=== PATIENT | male | born 1940 | race Caucasian/White ===

== ENCOUNTER 2016-07-10 11:02 | Emergency (ER) | payer OTHER ==
[~2016-07-10] VITALS: Ht 175.3 cm; Wt 102.9 kg
[~2016-07-10 11:02] MED LIST: ALIGN4 MG PO; ALTACE10 MG PO; ALTACE5 MG PO; AMITIZA24 MICROGR PO; AMLODIPINE BESY10 MG PO; AMLODIPINE BESYL5 MG PO; ASPERDRINK81 MG PO; ASPIR 8181 M1 PO; ASPIRIN81 M1 PO; BENEFIBER236 GM PO; BENEFIBER98 GM PO; BENEMID500 MG PO; BETAMETHASONE V15 GM TP; BUMETANIDE1 MG PO; BUMEX0.5 MG PO; BUMEX1 MG PO; CALCIPOTRIENE60 G1 TP; CALCIPOTRIENE60 ML TP; CHILDREN'S ASPI81 M1 PO; CICLOPIROX 0.77% TP; CICLOPIROX OLAMINE TP; CICLOPIROX30 GM TP; CICLOPIROX60 ML TP; CLOBETASOL 0.05%; CLOBETASOL PROP50 ML TP; CLOBETASOL PROP60 GM TP; COLACE100 MG PO; COLBENEMID1 TABLET; CORMAX50 M1 TP; COUMADIN PO; COUMADIN1 MG PO; COUMADIN5 MG PO; COUMADIN6 MG PO; COUMADIN7.5 MG PO; DAILY MULTIPLE1 EAC2 PO; DAILY VITAMIN1 EAC4 PO; DAILY VITE1 EAC1 PO; DESOWEN60 GM; DESYREL12.5 MG PO; DICYCLOMINE HCL10 MG PO; DIGESTIVE PROB1 EACH PO; DOCUSATE SODIU100 MG PO; FLORANEX CHE1 TABLET PO; GLUCOSAMINE &1 EACH PO; GLUCOSAMINE CH1 EAC6 PO; IMDUR60 MG PO; IPRATROPIU0.2 MG/1 M IH; JANTOVEN4 MG PO; KEFLEX500 MG PO; KETOCONAZOLE120 ML TP; LASIX40 MG PO; LEVAQUIN500 MG PO; LO-DOSE ASPIRIN81 M1 PO; LOW DOSE ASPIRI81 M1 PO; MILK OF MAGN PO; MILK OF MAGNESI10 ML PO; MIRALAX17 GM PO; MIRALAX255 GM PO; MUCINEX600 MG PO; MULTI VITAMIN; MULTIVITAMIN1 EAC2 PO; MYLICON,MYLANTA80 MG PO; NAPROSYN500 MG PO; NIFEDIPINE ER30 MG PO; NITROSTAT0.4 MG SL; NIZORAL A-D120 ML TP; NIZORAL SHAMPO120 ML TP; NORVASC5 MG PO; OMEPRAZOLE40 M1 PO; ONE DAILY COMP1 EACH PO; OSTEO BI-FLEX1 EAC1 PO; OSTEO BI-FLEX1 EAC2 PO; OSTEO BIFLEX; OSTERA TABLET1 EACH PO; PERCOCET 5/31 TABLET PO; PLAVIX75 MG PO; PREDNISONE20 MG PO; PRILOSEC40 MG PO; PROBENECID; PROBENECID500 MG PO; PROBIOTIC; PROBIOTIC1 EAC1 PO; PROBIOTIC1 EACH PO; RAMIPRIL10 MG PO; RANITIDINE HCL150 M1; RANITIDINE HCL150 M1 PO; RANITIDINE HCL150 MG PO; ST. JOSEPH ASPI81 MG PO; STOOL SOFTENER100 MG PO; TEMOVATE 0.05%30 GM TP; TYLENOL EXTRA500 MG PO; TYLENOL REGULA325 MG PO; VALISONE 0.1% TP; VITAMIN C1000 MG PO; WAFARIN PO; WARFARIN SODIUM1 MG PO; WARFARIN SODIUM5 MG PO; WARFARIN SODIUM6 MG PO; XARELTO15 MG; ZANTAC150 MG PO; ZETIA10 MG; ZETIA10 MG PO; ZYRTEC10 M3 PO; [UNRECOGNIZED DRUG - OTHER]; [UNRECOGNIZED DRUG - OTHER]; [UNRECOGNIZED DRUG - OTHER] PO
[2016-07-10 12:25] LABS: HEMATOCRIT 37.8 % (38.0-50.0); MCH 31.2 PG (29.0-34.0); MCHC 33.3 G/DL (30.0-36.0); MCV 93.6 FL (86-99); MEAN PLAT.VOLUME 9.4 uM^3 (9.0-12.4); PLATELET COUNT 193 K/uL (156-360); RBC DIS.WIDTH-CV 15.6 % (11.8-14.6); RBC DIS.WIDTH-SD 50.7 % (39-53); RED BLOOD COUNT 4.04 M/uL (4.00-5.50); WHITE BLOOD COUNT 6.6 K/uL (4.1-10.2)
[2016-07-10 12:34] LABS: CHLORIDE 99 mEq/L (99-109); POTASSIUM 4.7 mEq/L (3.7-5.4); SODIUM 131 mEq/L (136-147)
[2016-07-10 12:36] LABS: GLUCOSE 105 mg/dL (70-99)
[2016-07-10 12:38] LABS: ANION GAP 11 MEQ/L (2-14)
[2016-07-10 12:40] LABS: GFR ESTIMATE (CALCULATED) 40 mL/min/
[2016-07-10 12:41] LABS: UREA NITROGEN (BUN) 25 mg/dL (9-23)
[2016-07-10] MEDS ORDERED: CARTIA XT180 MG PO (13:13)
[2016-07-10 13:54] LABS: INFLUENZA A VIRAL ANTIGEN POSITIVE; INFLUENZA B VIRAL ANTIGEN NEGATIVE
[2016-07-10 14:57] VITALS: BP 109/65
== END 2016-07-10 14:58 | disposition home or self-care (01) ==
LOC: EME 11:02
PROVIDERS: Emergency Medicine
DX: J11.1 Influenza due to unidentified influenza virus with other respiratory manifestations (principal); E78.5 Hyperlipidemia, unspecified; I10 Essential (primary) hypertension; I25.2 Old myocardial infarction; M81.0 Age-related osteoporosis without current pathological fracture; I25.10 Atherosclerotic heart disease of native coronary artery without angina pectoris; G89.29 Other chronic pain; M79.7 Fibromyalgia; Z85.46 Personal history of malignant neoplasm of prostate; Z98.61 Coronary angioplasty status; Z95.0 Presence of cardiac pacemaker; Z98.1 Arthrodesis status; Z87.891 Personal history of nicotine dependence; Z79.01 Long term (current) use of anticoagulants; Z79.82 Long term (current) use of aspirin
CPT/HCPCS: 71020; 80048; 85027; 87040; 87502; 99281; 99285

== ENCOUNTER 2017-01-28 17:26 | Emergency (ER) | payer OTHER ==
[~2017-01-28] VITALS: Ht 175.3 cm; Wt 99.7 kg
[~2017-01-28 17:26] MED LIST changes: +CARTIA XT180 MG PO
[2017-01-28 18:17] LABS: HEMATOCRIT 38.3 % (38.0-50.0); MCH 30.1 PG (29.0-34.0); MCHC 33.2 G/DL (30.0-36.0); MCV 90.8 FL (86-99); MEAN PLAT.VOLUME 9.2 uM^3 (9.0-12.4); PLATELET COUNT 234 K/uL (156-360); RBC DIS.WIDTH-CV 14.5 % (11.8-14.6); RBC DIS.WIDTH-SD 48.5 % (39-53); RED BLOOD COUNT 4.22 M/uL (4.00-5.50); WHITE BLOOD COUNT 6.6 K/uL (4.1-10.2)
[2017-01-28 18:30] LABS: CHLORIDE 99 mEq/L (99-109); POTASSIUM 4.6 mEq/L (3.7-5.4); SODIUM 133 mEq/L (136-147)
[2017-01-28 18:32] LABS: GLUCOSE 115 mg/dL (70-99)
[2017-01-28 18:33] LABS: ANION GAP 8 MEQ/L (2-14)
[2017-01-28 18:36] LABS: GFR ESTIMATE (CALCULATED) 45 mL/min/
[2017-01-28 18:37] LABS: UREA NITROGEN (BUN) 21 mg/dL (9-23)
[2017-01-28 18:40] LABS: TROP-I INTERPRETATION NEGATIVE; TROPONIN-I < 0.01 ng/mL (0.0-0.30)
[2017-01-28 22:33] LABS: TROP-I INTERPRETATION NEGATIVE; TROPONIN-I < 0.01 ng/mL (0.0-0.30)
[2017-01-28 23:04] VITALS: BP 138/88
== END 2017-01-28 23:06 | disposition home or self-care (01) ==
LOC: EME 17:26
PROVIDERS: Emergency Medicine
DX: R07.89 Other chest pain (principal); I25.2 Old myocardial infarction; E78.5 Hyperlipidemia, unspecified; I10 Essential (primary) hypertension; Z95.0 Presence of cardiac pacemaker; Z95.5 Presence of coronary angioplasty implant and graft; Z87.891 Personal history of nicotine dependence; Z79.01 Long term (current) use of anticoagulants; Z79.82 Long term (current) use of aspirin; M79.7 Fibromyalgia; Z88.1 Allergy status to other antibiotic agents; Z88.8 Allergy status to other drugs, medicaments and biological substances
CPT/HCPCS: 71020; 80048; 84484; 85027; 93005; 99281; 99285

== ENCOUNTER 2017-02-07 12:41 | Observation (INO) | payer OTHER ==
[~2017-02-07] VITALS: Ht 175.3 cm; Wt 100.5 kg
[2017-02-07 13:25] LABS: HEMATOCRIT 36.7 % (38.0-50.0); MCH 30.1 PG (29.0-34.0); MCHC 33.2 G/DL (30.0-36.0); MCV 90.6 FL (86-99); MEAN PLAT.VOLUME 9.1 uM^3 (9.0-12.4); PLATELET COUNT 223 K/uL (156-360); RBC DIS.WIDTH-CV 14.6 % (11.8-14.6); RED BLOOD COUNT 4.05 M/uL (4.00-5.50); WHITE BLOOD COUNT 6.8 K/uL (4.1-10.2)
[2017-02-07 13:36] LABS: CHLORIDE 102 mEq/L (99-109); POTASSIUM 4.6 mEq/L (3.7-5.4); SODIUM 135 mEq/L (136-147)
[2017-02-07 13:38] LABS: GLUCOSE 87 mg/dL (70-99)
[2017-02-07 13:39] LABS: ANION GAP 10 MEQ/L (2-14)
[2017-02-07 13:42] LABS: GFR ESTIMATE (CALCULATED) 49 mL/min/
[2017-02-07 13:43] LABS: UREA NITROGEN (BUN) 19 mg/dL (9-23)
[2017-02-07 13:45] LABS: TROP-I INTERPRETATION NEGATIVE; TROPONIN-I < 0.01 ng/mL (0.0-0.30)
[2017-02-07] MEDS ORDERED: COLACE100 MG PO (16:08)
[2017-02-07] MEDS ORDERED: COUMADIN2 MG PO (16:12)
[2017-02-07] MEDS ORDERED: COUMADIN5 MG PO (16:14)
[2017-02-07] MEDS ORDERED: CENTRUM SILVER1 EAC3 PO (16:16)
[2017-02-07] MEDS ORDERED: VITAMIN C500 M1 PO (16:20)
[2017-02-07] MEDS ORDERED: CLOBEX118 ML TP (16:25)
[2017-02-07] MEDS ORDERED: CARTIA XT240 MG PO (16:26)
[2017-02-07 17:12] LABS: INTER. NORMALIZED RATIO 2.4; PROTHROMBIN TIME 26.9 SEC (10.2-12.9)
[2017-02-07 17:15] LABS: PTT 42.4 SEC (25-37)
[2017-02-07 17:45] VITALS: BP 168/79
[2017-02-07 19:30] VITALS: BP 132/70
[2017-02-07 23:33] VITALS: BP 118/67
[2017-02-08 01:21] LABS: TROP-I INTERPRETATION NEGATIVE; TROPONIN-I < 0.01 ng/mL (0.0-0.30)
[2017-02-08 04:02] VITALS: BP 116/66
[2017-02-08 06:20] LABS: INTER. NORMALIZED RATIO 2.2; PROTHROMBIN TIME 24.7 SEC (10.2-12.9)
[2017-02-08 06:32] LABS: ALKALINE PHOSPHATASE 67 IU/L (3-129); ANION GAP 8 MEQ/L (2-14); CHLORIDE 103 MEQ/L (99-109); GFR ESTIMATE (CALCULATED) 45 mL/min/; GLUCOSE 96 mg/dL (70-99); POTASSIUM 4.2 MEQ/L (3.7-5.4); SAMPLE HEMOLYSIS CHECK 0; SAMPLE ICTERIC CHECK 0; SAMPLE LIPEMIA CHECK 0; SODIUM 136 MEQ/L (136-147); TOTAL BILIRUBIN 0.4 MG/DL (0.0-1.0); UREA NITROGEN (BUN) 21 mg/dL (9-23)
[2017-02-08 06:48] LABS: TROP-I INTERPRETATION NEGATIVE; TROPONIN-I 0.01 ng/mL (0.0-0.30)
[2017-02-08 08:00] VITALS: BP 131/67
[2017-02-08 11:07] VITALS: BP 114/66
== END 2017-02-08 13:41 | disposition home or self-care (01) ==
LOC: EME 12:41 → 5WEST 16:14 → EDOF 16:14 → ENRESERV 16:17 → 5WEST 17:23
PROVIDERS: Internal Medicine
DX: R07.9 Chest pain, unspecified (principal); R53.1 Weakness; I12.9 Hypertensive chronic kidney disease with stage 1 through stage 4 chronic kidney disease, or unspecified chronic kidney disease; N18.9 Chronic kidney disease, unspecified; I49.5 Sick sinus syndrome; I48.2 Chronic atrial fibrillation; I25.10 Atherosclerotic heart disease of native coronary artery without angina pectoris; Z95.5 Presence of coronary angioplasty implant and graft; E78.5 Hyperlipidemia, unspecified; Z95.0 Presence of cardiac pacemaker; K21.9 Gastro-esophageal reflux disease without esophagitis; M10.9 Gout, unspecified; R42 Dizziness and giddiness; Z79.01 Long term (current) use of anticoagulants; M19.90 Unspecified osteoarthritis, unspecified site; E66.9 Obesity, unspecified; Z68.32 Body mass index [BMI] 32.0-32.9, adult; Z85.46 Personal history of malignant neoplasm of prostate; Z88.0 Allergy status to penicillin; Z88.1 Allergy status to other antibiotic agents; Z88.8 Allergy status to other drugs, medicaments and biological substances
CPT/HCPCS: 71020; 80048; 80053; 84484; 85027; 85610; 85730; 93005; 99281; 99284; G0378

== ENCOUNTER 2017-06-16 14:45 | Emergency (ER) | payer OTHER ==
[~2017-06-16] VITALS: Ht 175.3 cm; Wt 100.6 kg
[~2017-06-16 14:45] MED LIST changes: +CARTIA XT240 MG PO; +CENTRUM SILVER1 EAC3 PO; +CLOBEX118 ML TP; +COUMADIN2 MG PO; +VITAMIN C500 M1 PO
[2017-06-16] MEDS ORDERED: LIDODERM 5% P1 PATCH TD (16:40)
[2017-06-16] MEDS ORDERED: ULTRAM50 MG PO (16:40)
[2017-06-16] MEDS ORDERED: VOLTAREN 1% GE100 GM TP (16:40)
[2017-06-16] MEDS ORDERED: FLEXERIL5 MG PO (17:39)
[2017-06-16 17:40] LABS: APPEARANCE CLEAR ((CLEAR)); BILIRUBIN NEGATIVE; BLOOD SMALL; COLOR YELLOW ((YELLOW)); GLUCOSE (STRIP) NEGATIVE; KETONES NEGATIVE; LEUKOCYTES NEGATIVE; NITRITE NEGATIVE; PROTEIN (STRIP) 30; SPECIFIC GRAVITY 1.013 (1.000-1.030); UROBILINOGEN 0.2 MG/DL (0.2-1.0)
[2017-06-16 17:50] LABS: BACTERIA NONE SEEN /HPF; EPITHELIAL CELLS 1+ /HPF; MUCUS TRACE /LPF; UCUL ADDED? YES
[2017-06-16 18:58] LABS: HEMATOCRIT 37.3 % (38.0-50.0); HEMOGLOBIN 12.6 G/DL (12.5-16.6); MCH 31.4 PG (29.0-34.0); MCHC 33.8 G/DL (30.0-36.0); PLATELET COUNT 209 K/uL (156-360); RBC DIS.WIDTH-CV 14.6 % (11.8-14.6); RBC DIS.WIDTH-SD 50.4 % (39-53); RED BLOOD COUNT 4.01 M/uL (4.00-5.50); WHITE BLOOD COUNT 5.6 K/uL (4.1-10.2)
[2017-06-16 19:25] LABS: ALBUMIN 3.7 g/dL (3.2-4.8); CHLORIDE 102 mEq/L (99-109); POTASSIUM 4.6 mEq/L (3.7-5.4); SODIUM 136 mEq/L (136-147)
[2017-06-16 19:27] LABS: GLUCOSE 88 mg/dL (70-99); TOTAL PROTEIN 7.2 g/dL (6.4-8.3)
[2017-06-16 19:28] VITALS: BP 130/82
[2017-06-16 19:29] LABS: TOTAL BILIRUBIN 0.4 mg/dL (0.0-1.0)
[2017-06-16 19:31] LABS: ALKALINE PHOSPHATASE 78 IU/L (3-129); CREATININE 1.9 mg/dL (0.6-1.3); GFR ESTIMATE (CALCULATED) 37 mL/min/ (58.99-99999)
[2017-06-16 19:32] LABS: AST (GOT) 18 IU/L (2-34); UREA NITROGEN (BUN) 23 mg/dL (9-23)
[2017-06-16 19:34] LABS: ALT (GPT) 14 IU/L (3-49)
== END 2017-06-16 19:32 | disposition home or self-care (01) ==
LOC: EME 14:45
PROVIDERS: Nurse Practitioner Family
DX: M54.5 Low back pain (principal); R31.9 Hematuria, unspecified; I10 Essential (primary) hypertension; E78.5 Hyperlipidemia, unspecified; M79.7 Fibromyalgia; M81.0 Age-related osteoporosis without current pathological fracture; I25.10 Atherosclerotic heart disease of native coronary artery without angina pectoris; I25.2 Old myocardial infarction; Z95.0 Presence of cardiac pacemaker; Z95.5 Presence of coronary angioplasty implant and graft; Z87.891 Personal history of nicotine dependence; Z88.0 Allergy status to penicillin; Z88.1 Allergy status to other antibiotic agents; Z88.8 Allergy status to other drugs, medicaments and biological substances
CPT/HCPCS: 72100; 80053; 81003; 85027; 87086; 99281; 99285; J1885